=== PATIENT | male | born 1970 | race Caucasian/White ===

== ENCOUNTER 2019-08-17 23:20 | Emergency (ER) | payer OTHER ==
[2019-08-18 00:01] VITALS: TEMP 98.3; BMI 27.4
[2019-08-18] MEDS ORDERED: SULFAMETHOXAZOLE/TRIMETHOPRIM 800MG/160MG D.S. TABLET PO ONE (00:47)
[2019-08-18] MEDS ORDERED: LIDOCAINE 1%/EPI 1:100000 (20 ML MULTI DOSE VIAL) ONE (01:11)
--- NOTE | 2019-08-18 01:42 | PDOC ---
History of Present Illness - General Chief Complaint: Abscess Boil Stated Complaint: ABSCESS Time Seen by Provider: 08/18/19 00:24 History Source: Patient Exam Limitations: No Limitations Past History - Past Medical History Allergies/Adverse Reactions: Allergies Allergy/AdvReac Type Severity Reaction Status Date / Time No Known Allergies Allergy Verified 08/18/19 00:01 - Psycho Social/Smoking Cessation Hx Smoking History: Never smoked Hx Alcohol Use: No Drug/Substance Use Hx: No *Physical Exam - Vital Signs Last Vital Signs Temp Pulse Resp BP Pulse Ox 98.3 F 90 19 150/91 98 08/17/19 23:51 08/17/19 23:51 08/17/19 23:51 08/17/19 23:51 08/17/19 23:51 - Physical Exam General Appearance: No: Apparent Distress Integumentary: positive: Other (around 3x3 cm abscess around medial L axilla, no streaking, no drainage) Neurologic: positive: Alert Procedures - Incision and Drainage I&D Site: Left: Axilla Betadine cleansed: Yes Anesthesia: 1% Lidocaine w/ Epi Blade Size: 11 Attempts: 1 Iodinated Packin/2 in Complications: none Medical Decision Making - Medical Decision Making 49 y/o M with no sig pmh presents with bump along L axilla x 3 days, gradually getting bigger. Unsure how he got it. Denies shaving the site. Has never had this before. Denies fever L axilla abscess - I&D performed with purulent drainage and some whitish d/c as well Packing placed stable for dc 08/18/19 01:39 Discharge - Discharge Information Problems reviewed: Yes Clinical Impression/Diagnosis: Abscess Condition: Stable - Admission No - Additional Discharge Information Prescription Drug Monitoring Program (I-STOP) results: I-STOP not reviewed - Follow up/Referral - Patient Discharge Instructions Patient Printed Discharge Instructions: DI for Incision and Drainage of a Skin Abscess Additional Instructions: Thank you for choosing [facility]. It was a pleasure taking care of you. Return in 2 days for wound check Apply warm compresses along site Return to the Emergency Department if your symptoms worsen or persist, you have fever, redness, streaking or other concerning symptoms. [place] por elegir el [facility]. Fue un placer cuidar de ti. Regreso en 2 bui para control de heridas Aplique compresas calientes a lo юлия del sitio. Regrese al departamento de emergencias si buster sntomas empeoran o persisten, tiene fiebre, enrojecimiento, feliciano u otros sntomas preocupantes. Print Language: MACEDONIAN - Post Discharge Activity
[2019-08-18 03:21] VITALS: BP 148/82; PULSE 81
== END 2019-08-18 01:45 | disposition home or self-care (01) ==
LOC: JER 23:20
DX: Z48.817 Encounter for surgical aftercare following surgery on the skin and subcutaneous tissue (principal); Z48.01 Encounter for change or removal of surgical wound dressing
CPT/HCPCS: 99282-25

== ENCOUNTER 2019-08-21 02:03 | Emergency (ER) | payer OTHER ==
--- NOTE | 2019-08-21 02:28 | PDOC ---
History of Present Illness - General Stated Complaint: WOUND CHECK Time Seen by Provider: 08/21/19 02:27 History Source: Patient Exam Limitations: No Limitations - History of Present Illness Initial Comments: 08/21/19 02:28 HPI: 49yo M with no significant PMH presenting for wound check 2 days S/P abscess I&D (08/19). Denies fevers, chills, nausea, vomiting, local site reaction. Reports that the packing came out this AM with dressing change. No complaints at this time. NKDA Meds: denies PMH: denies PSH: denies Past History - Travel Traveled outside of the country in the last 30 days: No Close contact w/someone who was outside of country & ill: No - Past Medical History Allergies/Adverse Reactions: Allergies Allergy/AdvReac Type Severity Reaction Status Date / Time No Known Allergies Allergy Verified 08/21/19 02:36 Home Medications: Ambulatory Orders Cephalexin Monohydrate [Keflex -] 500 mg PO BID #14 capsule 08/21/19 - Psycho Social/Smoking Cessation Hx Smoking History: Never smoked Hx Alcohol Use: No Drug/Substance Use Hx: No Review of Systems - Review of Systems Able to Perform ROS?: Yes Is the patient limited Korean proficient: Yes Constitutional: No: Chills, Diaphoresis, Fever HEENTM: No: Recent change in vision, Nose Congestion, Throat Pain Respiratory: No: Cough, Shortness of Breath, Wheezing Cardiac (ROS): No: Chest Pain, Edema, Irregular Heart Rate ABD/GI: No: Constipated, Diarrhea, Nausea, Vomiting : No: Burning, Dysuria, Discharge Musculoskeletal: No: Muscle Pain, Muscle Weakness Integumentary: No: Bruising, Pruritus, Rash Neurological: No: Headache, Numbness, Tingling, Weakness Psychiatric: No: Stressors, Emotional Problems Endocrine: No: Increased Thirst, Increased Urine Hematologic/Lymphatic: No: Anemia, Blood Clots, Easy Bleeding All Other Systems: Reviewed and Negative *Physical Exam - Physical Exam 08/21/19 02:43 Vitals reviewed, AFVSS WDWN man, appears stated age, no acute distress RRR, nl s1s2, no murmur CTABL, normal WOB, no wheezes / rales / rhonchi Soft, non-tender, non-distended Abscess side (L axilla) with pus expression, no erythema / swelling / warmth, packing no longer in place 2+ radial and PT pulses CN grossly intact, MAEE, normal sensation Medical Decision Making - Medical Decision Making 08/21/19 02:45 49yo M with no significant PMH presenting for wound check 2 days S/P abscess I& D (08/19). - Pus expressed, loculations broken - Repacked with 2cm iodoform packing - Keflex sent to pharmacy - Patient will return for wound check 08/23 or 08/25 - Return precautions discussed Discharge - Discharge Information Problems reviewed: Yes Clinical Impression/Diagnosis: Wound check, abscess Condition: Good Disposition: HOME - Admission No - Additional Discharge Information Prescriptions: Cephalexin Monohydrate [Keflex -] 500 mg PO BID #14 capsule - Follow up/Referral Referrals: [facility] [place] [facility] [place] [Provider Group] - Patient Discharge Instructions Additional Instructions: Thank you for choosing [facility]. It was a pleasure taking care of you. Return in 2 days for wound check Apply warm compresses along site A prescription for antibioticxs has been sent to your pharmacy. Please take these as directed. Return to the Emergency Department if your symptoms worsen or persist, you have fever, redness, streaking or other concerning symptoms. [place] por elegir el [facility]. Fue un placer cuidar de ti. Regreso en 2 bui para control de heridas Aplique compresas calientes a lo юлия del sitio. Regrese al departamento de emergencias si buster sntomas empeoran o persisten, tiene fiebre, enrojecimiento, feliciano u otros sntomas preocupantes. - Post Discharge Activity
[2019-08-21 02:36] VITALS: BP 150/90; PULSE 80; BMI 28.2
[2019-08-21] MEDS ORDERED: CEPHALEXIN MONOHYDRATE 500 MG CAPSULE (UD) PO ONE (02:36)
[2019-08-21] MEDS ORDERED: CEPHALEXIN MONOHYDRATE 500 MG CAPSULE (UD) ONE (02:47)
--- NOTE | 2019-08-21 02:55 | PDOC ---
Attending Attestation - Resident Resident Name: Palomo Cosby - ED Attending Attestation I have performed the following: I have examined & evaluated the patient, The case was reviewed & discussed with the resident, I agree w/resident's findings & plan - HPI HPI: 08/21/19 02:53 Pt has a cyst that we were able to extrude pus and sebum out of.. Pt had an I+D here a couple days ago. Now with continued infection. - Physicial Exam PE: 08/21/19 02:53 Pt will be repacked and placed on keflex. Follow with PMD/gen surg for wound check - Medical Decision Making 08/22/19 05:28 Pt discharged home with meds/abx and repacked abscess Pt can follow with gen surg or his own PMD for wound check.
== END 2019-08-21 03:12 | disposition home or self-care (01) ==
LOC: JER 02:03
DX: Z48.817 Encounter for surgical aftercare following surgery on the skin and subcutaneous tissue (principal); Z48.01 Encounter for change or removal of surgical wound dressing
CPT/HCPCS: 99281-25